=== PATIENT | male | born 1970 | race Caucasian/White ===

== ENCOUNTER → 2017-06-05 | Outpatient (CLI) | payer BC ==
--- NOTE | 2017-06-05 09:28 | CT ---
EXAMINATION TYPE: CT abdomen pelvis w con DATE OF EXAM: 06/05/2017 COMPARISON: NONE HISTORY: Patient complains of midline pelvic pain and dysuria x8 weeks. Left lower quadrant pain per order. CT DLP: 1667 mGycm, Automated Exposure Control for Dose Reduction was Utilized. CONTRAST: CT scan of the abdomen and pelvis is performed with oral and with IV Contrast, patient injected with 100 mL of Omnipaque 300. FINDINGS: LUNG BASES: No significant abnormality is appreciated. LIVER/GB: Cholecystectomy clips are noted. There is mild central intrahepatic and extrahepatic biliar y prominence likely product of cholecystectomy. PANCREAS: No significant abnormality is seen. SPLEEN: There is 1.1 cm splenule anterior to superior spleen on axial image 10. ADRENALS: No significant abnormality is seen. KIDNEYS: There is symmetric cortical medullary uptake and excretion from the kidneys without concerni ng renal mass or hydronephrosis seen bilaterally. Urinary bladder appears is slightly distended witho ut intraluminal mass or wall thickening. Scattered pelvic phleboliths are present bilaterally. BOWEL: Normal-appearing appendix is seen from cecum. Oral contrast does not reach level of the termin al ileum. There is no suspicious small or large bowel dilatation. There is slightly prominent fluid-f illed terminal ileum. Fecal material is seen in nondistended colon. PROSTATE/SEMINAL VESICLES: No gross abnormality seen. LYMPH NODES: No greater than 1cm abdominal or pelvic lymph nodes are appreciated. OSSEOUS STRUCTURES: No significant abnormality is seen. OTHER: No significant additional abnormality is seen. IMPRESSION: Slightly prominent or distended bladder otherwise no suspicious finding is seen to accoun t for patient's symptoms.
== END | disposition home or self-care (01) ==
LOC: RADCTMAIN 08:30
PROVIDERS: ATTEND Family Medicine
DX: R10.32 Left lower quadrant pain (principal)
CPT/HCPCS: 74177; Q9967

== ENCOUNTER 2018-06-30 10:05 | Day surgery (SDC) | payer BC ==
[2018-06-27 13:21] VITALS: BMI 27.2
[~2018-06-30 10:05] MED LIST: LACTATED RINGERS 1,000 ML IV SCH; LIDOCAINE 1% 20 ML VIAL (10MG/ML) FOR IV START INTRADERMA PRN
[2018-06-30 10:29] VITALS: RESP 16; TEMP 97.5
[2018-06-30] MEDS ORDERED: GLYCOPYRROLATE 0.2 MG/ML 2 ML VIAL ONE (10:58)
[2018-06-30] MEDS ORDERED: LIDOCAINE 1% INJ 10MG/ML (20 ML MDV) ONE (10:58)
[2018-06-30] MEDS ORDERED: PROPOFOL 10 MG/ML 20 ML VIAL IV ONE (10:58)
--- NOTE | 2018-06-30 10:58 | P.GSHP ---
History of Present Illness H&P Date: 06/30/18 Chief Complaint: GERD, dysphagia This a 48-year-old male referred from Dr. Mi Golden. Patient presents today for EGD. He's had issues with GERD and dysphagia. Past Medical History Past Medical History: GERD/Reflux, Hyperlipidemia Additional Past Medical History / Comment(s): hx h-pylori, food getting stuck in throat History of Any Multi-Drug Resistant Organisms: None Reported Past Surgical History: Cholecystectomy Past Anesthesia/Blood Transfusion Reactions: Family History of Problems w/ Anesthesia Smoking Status: Never smoker - Past Family History Mother Family Medical History: No Reported History Medications and Allergies Home Medications Medication Instructions Recorded Confirmed Type Crestor (Unknown Dose) 20 tab PO WEEKLY 06/27/18 06/30/18 History Pantoprazole (Unknown Dose) 40 tab PO BID 06/27/18 06/30/18 History Zetia (Unknown Dose) 10 tab PO DAILY 06/27/18 06/30/18 History Amoxicillin 1,000 mg PO Q12HR 06/30/18 06/30/18 History Levofloxacin [Levaquin] 500 mg PO DAILY 06/30/18 06/30/18 History Allergies Allergy/AdvReac Type Severity Reaction Status Date / Time No Known Allergies Allergy Verified 06/30/18 10:23 Surgical - Exam Vital Signs Temp Pulse Resp BP Pulse Ox 97.5 F L 56 L 16 130/70 95 06/30/18 10:27 06/30/18 10:27 06/30/18 10:27 06/30/18 10:27 06/30/18 10:27 - General well developed, well nourished, no distress - Eyes PERRL - ENT normal pinna - Neck no masses - Respiratory normal expansion - Cardiovascular Rhythm: regular - Abdomen Abdomen: soft, non tender Assessment and Plan Assessment: GERD, dysphagia. We'll perform EGD.
--- NOTE | 2018-06-30 11:12 | P.OP ---
Date of Procedure: 06/30/18 Preoperative Diagnosis: Dysphagia GERD Postoperative Diagnosis: Antral gastritis Procedure(s) Performed: EGD Anesthesia: MAC Surgeon: Bridger Farley Pathology: other (Antrum) Condition: stable Disposition: PACU Description of Procedure: Patient's placed on the endoscopy table in the lateral position. He received IV sedation. The gastroscope was placed oropharynx passed in the esophagus and stomach. Scope was then placed through the pylorus. The first and second portion of the duodenum appeared normal. Scope was then brought back the antrum this was mildly inflamed. A biopsies performed. Scope was then retroflexed and the remainder some appeared normal. There is no significant hiatal hernia. The GE junction was at 40 cm. The distal esophagus appeared normal. The proximal esophagus appeared normal. Scope was withdrawn for patient.
[2018-06-30 11:40] VITALS: BP 117/73; PULSE 53
== END 2018-06-30 11:55 | disposition home or self-care (01) ==
LOC: ORWHC2ENDO 10:05
PROVIDERS: ATTEND Surgery
DX: K29.50 Unspecified chronic gastritis without bleeding (principal); K21.9 Gastro-esophageal reflux disease without esophagitis; Z86.19 Personal history of other infectious and parasitic diseases; E78.5 Hyperlipidemia, unspecified; Z79.2 Long term (current) use of antibiotics; Z79.899 Other long term (current) drug therapy; Z90.49 Acquired absence of other specified parts of digestive tract
CPT/HCPCS: 88305; 43239; J2001; J2704

== ENCOUNTER → 2018-07-16 | Outpatient (CLI) | payer BC ==
--- NOTE | 2018-07-16 09:56 | FL ---
EXAMINATION TYPE: FL barium swallow DATE OF EXAM: 07/16/2018 CLINICAL HISTORY: Gastroesophageal reflux. TECHNIQUE: A double contrast esophagram is performed utilizing air and barium. A total of 120 secon ds of fluoroscopic time was utilized during procedure. 27 fluoroscopic images were saved. COMPARISON: None FINDINGS: The esophagus shows normal motility and emptying into the stomach. Esophageal mucosa appea rs regular. No evidence of hiatal hernia or stricture noted. Mild gastroesophageal reflux was seen du ring real time performance of this study in the gravity dependent and independent portions of the exa mination to the level of the distal esophagus just above the gastroesophageal junction. IMPRESSION: Mild degree gastroesophageal reflux just above the gastroesophageal junction that persist s throughout the exam in the gravity dependent and independent portions of the examination.
== END | disposition home or self-care (01) ==
LOC: RADFLWHC 08:46
PROVIDERS: ATTEND Surgery
DX: K21.9 Gastro-esophageal reflux disease without esophagitis (principal)
CPT/HCPCS: 74220